=== PATIENT | male | born 1985 | race Caucasian/White ===

== ENCOUNTER 2017-04-11 10:24 | Emergency (ER) | payer OTHER, BC ==
[~2017-04-11] VITALS: Ht 190.5 cm; Wt 100.0 kg
[2017-04-11 10:30] VITALS: TEMP 36.4; Ht 190.5 cm; Wt 100.0 kg
[2017-04-11] MEDS ORDERED: SODIUM CHLORIDE 0.9% 1000ML 1,000 ML IV STA (10:43)
[2017-04-11] MEDS ORDERED: ONDANSETRON INJ 2 MG/ML 2 ML VIAL IV STA (10:43)
[2017-04-11] MEDS ORDERED: KETOROLAC TROMETHAMINE 30 MG/ML VIAL IV STA (10:43)
[2017-04-11] MEDS ORDERED: DiphenhydrAMINE HCL 50 MG/ML VIAL IV STA (10:43)
--- NOTE | 2017-04-11 11:15 | EMERGENCY ROOM VISIT NOTE ---
History Report prepared by Aureliano: Elma Sesay Under the Supervision of: Dr. Deacon Flores M.D. 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 The patient states that he got stung by a bee on the posterior side of his left arm while he was at work. He states that he proceeded to work but while he was climbing a ladder he started to feel "weird" so he climbed back down. The patient states that he developed a headache, blurry vision, difficulty swallowing, shortness of breath, and palpitations after he was stung. The blurry vision, shortness of breath, and difficulty swallowing have resolved and the palpitations have improved but they are still there. He is still experiencing the headache. He is also currently experiencing nausea but denies vomiting. The patient states that he does not feel that he was tachypneic when he was experiencing the shortness of breath. He denies any history of anxiety and states that he has never experienced these symptoms in the past. He has not taken any medications for his symptoms. The patient denies head trauma along with any rashes. He states that he does not have a known allergy to bees and the only known allergy he has is to certain medications. He states that with his allergic reaction to medications he experiences urticaria. The patient states that he does not have any significant past medical problems. 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 A total of ten systems were reviewed and were otherwise negative. 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 Family History Gallbladder disease Heart disease Hypertension Hypertension Kidney disease Kidney stones Lung disease Social History Smoking Status: Never Smoker Smokeless Tobacco Use: Yes Alcohol Use: occasionally Marital Status: Housing Status: lives with family Occupation Status: employed Current/Historical Medications No Active Prescriptions or Reported Meds Allergies Coded Allergies: Cefaclor (Verified Allergy, Intermediate, hives, 04/11/17) BEE STING (Unverified Allergy, Unknown, ANAPHYLAXIS, 04/11/17) Physical Exam Vital Signs Date Time Temp Pulse Resp B/P (MAP) Pulse Ox O2 Delivery O2 Flow Rate FiO2 04/11/17 12:43 80 16 129/80 98 04/11/17 11:37 53 16 122/62 99 Room Air 04/11/17 10:30 36.4 62 20 119/73 96 Room Air Physical Exam GENERAL: Awake, alert, fatigued, uncomfortable-appearing, in no distress HENT: Normocephalic, atraumatic. Mucous membranes dry. EYES: Normal conjunctiva. Sclera non-icteric. NECK: Supple. No nuchal rigidity. FROM. No JVD. RESPIRATORY: Clear to auscultation. CARDIAC: Regular rate, normal rhythm. Extremities warm and well perfused. Pulses equal. ABDOMEN: Soft, non-distended. No tenderness to palpation. No rebound or guarding. No masses. RECTAL: Deferred. MUSCULOSKELETAL: Chest examination reveals no tenderness. The back is symmetrical on inspection without obvious abnormality. There is no CVA tenderness to palpation. No joint edema. UPPER EXTREMITIES: [place] on both arms. Mild tenderness to palpation of the dorsal aspect of the left upper arm without any area of induration or erythema. LOWER EXTREMITIES: Calves are equal size bilaterally and non-tender. No edema. No discoloration. NEURO: Normal sensorium. No sensory or motor deficits noted. SKIN: No rash or jaundice noted. Medical Decision & Procedures Medications Administered Medications (Trade) Dose Ordered Sig/Raine Route Start Time Stop Time Status Last Admin Dose Admin Ketorolac Tromethamine (Toradol Inj) 30 mg NOW STAT IV 04/11/17 10:43 04/11/17 10:46 DC 04/11/17 11:12 30 MG Diphenhydramine HCl (Benadryl Inj) 50 mg NOW STAT IV 04/11/17 10:43 04/11/17 10:46 DC 04/11/17 11:12 50 MG Sodium Chloride 1,000 ml @ 999 mls/hr Q1H1M STAT IV 04/11/17 10:43 04/11/17 11:43 DC 04/11/17 11:13 999 MLS/HR Ondansetron HCl (Zofran Inj) 4 mg NOW STAT IV 04/11/17 10:43 04/11/17 10:46 DC 04/11/17 11:11 4 MG ECG Indication: SOB/dyspnea Rate (beats per minute): 50 Rhythm: sinus bradycardia Findings: no acute ischemic change, other (normal axis) ED Course 1036: The patient was evaluated in room B9. A complete history and physical exam was performed. 1043: Ordered Zofran Inj 4 mg IV, Sodium Chloride 1000 ml @ 999 mls/hr IV, Benadryl Inj 50 mg IV, Toradol Inj 30 mg IV 1204: I reevaluated the patient. He feels well. Discussed results and discharge instructions: he verbalized understanding and agreement. The patient is ready for discharge. Medical Decision I reviewed the patient's past medical history, medications, and the nursing notes as described above. Differential diagnoses considered include mild allergic reaction, dehydration, anxiety, panic attack. The patient is a previously healthy 31-year-old gentleman who presents with headache and shortness of breath after a bee sting per history of present illness. Patient is to emergency department mildly uncomfortable with headache. Otherwise vital signs stable. No acute distress. On exam patient has clear lungs bilaterally, no stridor on auscultation, no edema in the oropharynx, and no rashes. Otherwise, the patient is neuro intact. EKG was sinus bradycardia in the 50s and otherwise unremarkable. Patient was given antiemetic and analgesic and IV fluids with resolution of symptoms. Ambulatory at baseline without any difficulty. Symptoms unlikely to be anaphylaxis in the setting of no other signs of allergic reaction. However mild allergic reaction possible resulting in transient episode of hyperventilation provoking the patient's headache and vision symptoms. Findings discussed with the patient and plan for PCP follow-up. Patient agreeable. Medication Reconcilliation Current Medication List: was personally reviewed by me Blood Pressure Screening Patient's blood pressure: Normal blood pressure Impression Primary Impression: Allergic reaction Scribe Attestation The scribe's documentation has been prepared under my direction and personally reviewed by me in its entirety. I confirm that the note above accurately reflects all work, treatment, procedures, and medical decision making performed by me. Departure Information Dispostion Home / Self-Care Prescriptions No Active Prescriptions or Reported Meds Referrals No Doctor, Assigned (PCP) Forms HOME CARE DOCUMENTATION FORM, IMPORTANT VISIT INFORMATION Patient Instructions ED Bite Sting Insect Gen Allergic React, My [facility] Additional Instructions Please follow up with her primary care doctor within the next few days. Your exam did not show any signs of an emergent condition. He likely had a mild allergic reaction to bee sting. Return to emergency department received medical attention for any worsening symptoms as described in the accompanying instructions. Problem Qualifiers Primary Impression: Allergic reaction Encounter type: initial encounter Qualified Codes: T78.40XA - Allergy, unspecified, initial encounter
[2017-04-11 12:43] VITALS: BP 129/80; PULSE 80; O2SAT 98
== END 2017-04-11 12:44 | disposition home or self-care (01) ==
LOC: C.EDB 10:25
DX: T78.40XA Allergy, unspecified, initial encounter (principal); X58.XXXA Exposure to other specified factors, initial encounter; Z82.49 Family history of ischemic heart disease and other diseases of the circulatory system; Z84.1 Family history of disorders of kidney and ureter